=== PATIENT | male | born 1980 | race Caucasian/White ===

== ENCOUNTER 2017-10-29 10:08 | Emergency (ER) | payer OTHER ==
[~2017-10-29] VITALS: Ht 170.2 cm; Wt 52.2 kg
[~2017-10-29 10:08] MED LIST: ASPIR-TRIN325 M1 PO
[2017-10-29 12:51] LABS: ADD MIUA? YES; BILIRUBIN NEGATIVE; BLOOD NEGATIVE; COLOR YELLOW ((YELLOW)); GLUCOSE (STRIP) NEGATIVE; KETONES NEGATIVE; LEUKOCYTES NEGATIVE; NITRITE NEGATIVE; PROTEIN (STRIP) NEGATIVE; SPECIFIC GRAVITY 1.015 (1.000-1.030); UROBILINOGEN 0.2 MG/DL (0.2-1.0)
[2017-10-29 12:55] LABS: BACTERIA RARE /HPF; EPITHELIAL CELLS NONE SEEN /HPF; MUCUS TRACE /LPF; RED BLOOD CELLS NONE SEEN /HPF (0-5); WHITE BLOOD CELLS NONE SEEN /HPF (0-5)
[2017-10-29] MEDS ORDERED: FLEXERIL10 MG PO (13:26)
[2017-10-29] MEDS ORDERED: PERCOCET 5/31 TABLET PO (13:26)
[2017-10-29 13:43] VITALS: BP 116/79
== END 2017-10-29 13:45 | disposition home or self-care (01) ==
LOC: EME 10:08
PROVIDERS: Emergency Medicine
DX: M54.5 Low back pain (principal); M79.1 Myalgia; F17.200 Nicotine dependence, unspecified, uncomplicated
CPT/HCPCS: 72100; 81003; 99281; 99285; J1885